=== PATIENT | female | born 1995 | race Caucasian/White ===

== ENCOUNTER 2017-02-02 12:11 | Emergency (ER) | payer OTHER ==
[~2017-02-02] VITALS: Ht 160 cm; Wt 77.1 kg
[2017-02-02] MEDS ORDERED: YASM3TAB2 PO (13:01)
[2017-02-02] MEDS ORDERED: TYLE500T78 PO (13:01)
[2017-02-02 15:36] VITALS: BP 148/72
== END 2017-02-02 16:03 | disposition home or self-care (01) ==
LOC: M ED 13:49
DX: S06.0X0A Concussion without loss of consciousness, initial encounter (principal); W51.XXXD Accidental striking against or bumped into by another person, subsequent encounter; Y92.89 Other specified places as the place of occurrence of the external cause; Y93.45 Activity, cheerleading; Y99.8 Other external cause status; Z79.3 Long term (current) use of hormonal contraceptives